=== PATIENT | male | born 1970 | race Caucasian/White ===

== ENCOUNTER 2024-12-05 13:04 | Emergency (ER) | payer BC, SELFPAY ==
[2024-12-05 13:07] VITALS: BP 144/96
[2024-12-05 14:10] VITALS: BP 110/85
[2024-12-05] MEDS: NSS 1000 IV (14:14)
[2024-12-05] MEDS: TORADOL 15 MG IV (14:14)
[2024-12-05] MEDS: PEPCID 20 MG IV (14:15)
[2024-12-05 14:35] LABS: % Basophils 0.7 % (0-2); % Eosinophils 2.8 % (0-6); % Immature Granulocytes 0.3 % (0-0.5); % Lymphocytes 24.8 % (20.5-51.1); % Neutrophils 61.4 % (42.2-75.2); Absolute Basophils 0.1 10^3/uL (0-0.2); Absolute Eosinophils 0.2 10^3/uL (0-0.7); Absolute Lymphocytes 1.9 10^3/uL (1.2-3.4); Absolute Monocytes 0.8 10^3/uL (0.1-0.6); Absolute Neutrophils 4.6 10^3/uL (1.4-6.5); Hematocrit 39.4 % (39.0-52.0); Hemoglobin 13.3 g/dL (13.0-18.0); Mean Corp Hgb Conc. 33.8 g/dL (33.0-37.0); Mean Corpuscular Hgb 30.6 pg (27.0-31.0); Mean Corpuscular Volume 90.8 fL (80.0-94.0); Mean Platelet Volume 10.1 fL (7.4-10.4); Nucleated Red Blood Cells % 0 % (-); Platelet Count 455 10^3/uL (130-400); Red Blood Cell Count 4.34 10^6/uL (4.70-6.10); Red Cell Dist. Width 13.2 % (11.5-14.5); White Blood Cell Count 7.5 10^3/uL (4.8-10.8)
[2024-12-05 14:48] LABS: ALT (SGPT) 33 U/L (0-50); AST (SGOT) 20 U/L (17-59); Albumin 3.9 g/dl (3.5-5.0); Alkaline Phosphatase 58 U/L (38-126); Blood Urea Nitrogen 11 mg/dl (9-20); Calcium 9.5 mg/dl (8.4-10.2); Carbon Dioxide 26 mmol/L (22-30); Chloride 104 mmol/L (98-107); Glucose 86 mg/dl (70-99); Lipase 38 U/L (23-300); Potassium 3.9 mmol/L (3.5-5.1); Sodium 137 mmol/L (135-145); Total Bilirubin 1.3 mg/dl (0.2-1.3); Total Protein 6.1 g/dl (6.3-8.2); Urine Albumin Negative (Neg - Trace); Urine Bilirubin Negative (Negative); Urine Character Slightly Cloudy (Clear); Urine Color Yellow; Urine Glucose Negative (Negative); Urine Ketone Negative (Negative); Urine Leukocyte Negative (Negative); Urine Nitrite Negative (Negative); Urine Occult Blood 1+ (Negative); Urine Urobilinogen Negative (Neg - 1+); eGFR > 60.00
--- NOTE | 2024-12-05 14:55 | ED.GENMED ---
History of Present Illness
General
Chief Complaint: Abdominal Symptoms
Source: patient
Exam Limitations: none
Time Seen by Provider: 12/05/24 13:28
Nursing documentation reviewed up to this point in time: agreed with
History of Present Illness
History of Present Illness:
Patient is a 54-year-old male with history of hypothyroid presenting to the emergency department for evaluation of abdominal symptoms. Patient states that 2 nights ago he woke up at 11 PM and had 4 hours of forceful vomiting and abdominal cramps.
He then had a few episodes of diarrhea. Patient states yesterday and today he has had very little appetite although no repeat episodes of vomiting. He originally thought this may be food poisoning although his and daughter had the same food
as him and did not get sick.
Of note�patient also reports about 6-week of intermittent fevers. Typically these have occurred in the afternoon hours with temps as high as 101F. He also reports feeling extremely fatigued with intermittent constipation over the past 6 weeks. He
has been seen by his primary care regarding this and was placed on a course of doxycycline although intermittent fevers persisted. Patient was also tested for Lyme disease which was negative. Patient has been taking semaglutide at a very low dose
for the past 7 months.
Patient denies any associated cough, chest pain, shortness of breath.
No known bug bites or rashes. No known sick contacts.
Past History
Past History
ED Past Medical History: None
ED Past Surgical History: None
Social History
Alcohol: Occasional
Drug: None
Living: with family
Review of Systems
Review of Systems
Allergies reviewed?: Yes
All Other Systems: ROS reviewed and negative except as documented in HPI and ROS
Phy Exam
Physical Exam
Physical Exam:
Vitals: Patient's vital signs are stable. Afebrile
General: Patient is well appearing, no acute distress. Nontoxic appearing
Skin: Warm and dry, no rashes or lesions
Head: Normocephalic, atraumatic
Eyes: Sclera nonicteric. EOMs intact. No nystagmus.
Throat: Protecting airway
Neck: Normal ROM, no cervical spine tenderness, no meningismus
Cardiac: Regular rate and rhythm, no murmurs.
Pulm: Normal respiratory effort, no wheezes, rales, rhonchi heard on exam.
Abdomen: Abdomen soft. Mild abdominal tenderness in both left lower quadrant and right lower quadrant. No rebound tenderness or guarding. No CVA tenderness
Extremities: No evidence of cyanosis or edema. Palpable DP pulses
Neuro: AAOx3. Grossly intact
Psychiatric: Normal affect.
Course
Orders/Labs/Results
Orders:
Orders
12/05/24 13:48
0.9% Sodium Chloride 1000 ml [Nss] 1,000 ml IV BOLUS
Famotidine [Pepcid] 20 mg IV NOW STA
Ketorolac [Toradol] 15 mg IV NOW STA
12/05/24 13:52
CT Abd/pelvis W Iv Cont Urgent
Comment:
Reason For Exam: b/l lower abdominal pain, vomiting
12/05/24 14:11
Complete Blood Count/With Diff Urgent
Comprehensive Metabolic Panel Urgent
Lipase Urgent
Monotest Urgent
Comment: ADD ON
Urinalysis Reflex To Culture Urgent
Date Specimen was Collected: 12/05/24
Time Specimen was Collected: 13:55
Urine Microscopic Reflex Cult Urgent
12/05/24 15:20
Add On- LAB Urgent
Tests Added?: monospot
Abnormal Lab Results
12/05/24
14:11
RBC 4.34 L 10^6/uL
(4.70-6.10)
Plt Count 455 H 10^3/uL
(130-400)
Absolute Monos (auto) 0.8 H 10^3/uL
(0.1-0.6)
Monocytes % 10.0 H %
(1.7-9.3)
Total Protein 6.1 L g/dl
(6.3-8.2)
Ur Occult Blood Reflex 1+ A
(Negative)
Urine Bacteria (Reflex) Few A
(Negative)
12/05/24 14:11
12/05/24 14:11
Vital Signs
Initial and Last Documented VS:
Initial Vital Signs
Temp Pulse Resp BP Pulse Ox
98.5 F 88 18 144/96 100
12/05/24 13:07 12/05/24 13:07 12/05/24 13:07 12/05/24 13:07 12/05/24 13:07
Last Documented Vital Signs
Temp Pulse Resp BP Pulse Ox
97.6 F 86 20 136/81 99
12/05/24 17:02 12/05/24 17:02 12/05/24 17:02 12/05/24 17:02 12/05/24 17:02
MDM/Problems Addressed
Differential Diagnosis Includes:
Not limited to: Viral gastroenteritis, appendicitis, acute cholecystitis, diverticulitis, viral illness, cystitis, etc
MDM/Problems Addressed:
54 year old male presenting with a few days of persistent anorexia, nausea, and abdominal cramps following acute episode of vomiting and diarrhea which has since resolved. Also concerned regarding intermittent low grade fevers over past 6 weeks and
fatigue. Negative workup with PCP regarding fevers including negative lyme testing. Patient afebrile on arrival with stable vital signs. Physical exam as above. Overall impression is likely viral gastroenteritis. Although given persistent anorexia
and diffuse abdominal tenderness on exam - will obtain CT imaging. Screening labs and UA also sent. Will give IVF, toradol and PPI.
Update: Labs reviewed. No clinicaly significant abnormalities on CBC or CMP. Lipase normal. Urine not infected. CT report reviewed with attending without findings of acute infectious process. Ultimately - viral gastroenteritis most likely etiollgy
of recent GI symptoms. Regarding intermittent fevers - did send monotest which was negative. Patient afebrile here and nontoxic appearing. Possibly underlying viral illness. Do not suspect acute infectious porcess given patient afebrile here with no
leukocytosis and negative abdominal imaging. Patient has remained hemodynamically stable in ED and appears very well and comfortable. Feel stable for discharge home with PCP f/u for furhter management of intermittent fevers. Close return precautions
discussed. Patient and patients comfortable wiht plan.
Chronic conditions affecting care:
N/A
Acute Exacerbation and/or Progression of Chronic Illness:
N/A
*Radiology
Radiology exam reviewed: radiology read reviewed
*Pulse Oximetry
Patient hypoxic: no
*EKG
Interpreted by ED Provider?: NA
*[employer] Interpretation
Rate: [employer]- N/A
*Critical Care Note
Total Time (30-74mins, 75-104mins- exclusive of procedures): Not Applicable
ED Attending Note
-
Portions of this chart may have been created with voice recognition software.� Occasional wrong word or��sound alike� substitutions may have occurred due to the inherent limitations of voice recognition software.
Discharge Plan
Departure
Patient Disposition: Home (Routine Discharge)
Date of Disposition: 12/05/24
Time of Disposition: 16:57
Patient with high blood pressure during this ER visit?: Yes
Condition: Good
Covid-19: Not Applicable
Discharge Problem:
Abdominal pain, Nausea & vomiting
Instructions: Constipation, Adult (DC), Abdominal Pain, BLOOD PRESSURE
Prescriptions:
No Action
levothyroxine 75 mcg Tablet
75 mcg PO DAILY
lithium carbonate 300 mg Capsule
300 mg PO DAILY
albuterol sulfate 90 mcg/actuation Hfa Aerosol Inhaler
2 puff INHALATION Q6HPRN PRN (Reason: sob/wheezing)
acetaminophen 500 mg Capsule
1,000 mg PO Q6HPRN PRN (Reason: mild pain)
bupropion HCl 300 mg Tablet Extended Release 24 Hr
300 mg PO DAILY
psyllium husk [Metamucil] 0.4 gram Capsule
2 g PO MEALS
Semaglutide
5 mg SC FR
Patient Comments:
12/05/24: Patient gets this specially compounded, but is thinking of possibly stopping soon, unsure if he should take next dose
Referrals:
Moy Redd MD [Family Provider] - Follow up in 5-7 days
Activity Restrictions/Additional Instructions:
Return to the emergency department with any fevers, chills, intractable nausea/vomiting, severe abdominal pain, signs of severe dehydration, worsening in current symptoms, or any other concerns
-As discussed�your lab work did show some degree of constipation today. You should try MiraLAX daily. Stay well-hydrated eat a high-fiber diet.
-You can take Tylenol and/or Motrin as needed to for discomfort.
-Follow-up with primary care for further evaluation/management and to ensure symptoms are improving
Monitor your symptoms closely and return to the emergency department with any acute worsening/new symptoms or any other concerns
Interventions
Interventions:
*Risk Screen - Suicide Last Done: 12/05/24 13:07
*General Assessment Last Done: 12/05/24 13:07
*Neglect/Abuse Screening Last Done: 12/05/24 13:07
*ED- Fall Risk Assessment Last Done: 12/05/24 14:10
*ED COVID-19 Vaccine History Last Done: 12/05/24 14:10
*Nursing Disposition Last Done: 12/05/24 17:02
GC-Mxedvf-Kxtydzshwo Assessment Last Done: 12/05/24 14:10
Discharge Date and Time
Discharge Date/Time: 12/05/24 17:15
Print Language: CANADIAN
[2024-12-05 14:56] LABS: Urine Bacteria Few (Negative); Urine Red Blood Cell 0-2 /HPF (0-2); Urine Squamous Cell 0-2 /LPF (Few); Urine White Cell 0-2 /HPF (0-5)
[2024-12-05 15:55] LABS: Monotest Negative (Negative)
[2024-12-05 17:02] VITALS: BP 136/81
== END 2024-12-05 17:15 | disposition home or self-care (01) ==
LOC: EMR 13:04
PROVIDERS: Physician Assistant; EMERGENCY PHYSICIAN Emergency Medicine; FAMILY PHYSICIAN Family Medicine
DX: R11.10 Vomiting, unspecified (principal); R19.7 Diarrhea, unspecified; R10.9 Unspecified abdominal pain; E03.9 Hypothyroidism, unspecified
CPT/HCPCS: 99284; 96374; 96375; 96361; 74177; 80053; 81003; 81015; 83690; 85025; 86308; Q9967

== ENCOUNTER → 2025-01-17 11:17 | Outpatient (REF) | payer BC, SELFPAY | LOC: RAD 11:17 | DX: M89.9 Disorder of bone, unspecified (principal) | CPT/HCPCS: 71101 ==

== ENCOUNTER → 2025-02-11 09:42 | Outpatient (REF) | payer BC, SELFPAY ==
[2025-02-13 00:06] LABS: PSA Total 0.4 ng/mL (0.0-4.0)
== END ==
LOC: REG 09:42
PROVIDERS: ATTENDING PHYSICIAN Surgery
DX: R22.31 Localized swelling, mass and lump, right upper limb (principal); R35.0 Frequency of micturition
CPT/HCPCS: 36415; 73060; 84153; 84154

== ENCOUNTER 2025-06-01 13:36 | Emergency (ER) | payer BC, SELFPAY ==
[2025-06-01 13:39] VITALS: BP 118/71
[2025-06-01 14:06] LABS: Hematocrit 38.4 % (39.0-52.0); Hemoglobin 13.0 g/dL (13.0-18.0); Mean Corp Hgb Conc. 33.9 g/dL (33.0-37.0); Mean Corpuscular Volume 88.9 fL (80.0-94.0); Nucleated Red Blood Cells % 0 % (-); Platelet Count 380 10^3/uL (130-400); Red Cell Dist. Width 13.2 % (11.5-14.5)
[2025-06-01 14:12] LABS: INR 1.05; PT 14.0 Sec (11.4-14.6)
[2025-06-01 14:23] LABS: ALT (SGPT) 18 U/L (0-50); AST (SGOT) 19 U/L (17-59); Albumin 4.3 g/dl (3.5-5.0); Alkaline Phosphatase 53 U/L (38-126); Blood Urea Nitrogen 18 mg/dl (9-20); Calcium 9.7 mg/dl (8.4-10.2); Carbon Dioxide 26 mmol/L (22-30); Chloride 106 mmol/L (98-107); Glucose 61 mg/dl (70-99); Potassium 4.1 mmol/L (3.5-5.1); Sodium 140 mmol/L (135-145); Total Protein 6.7 g/dl (6.3-8.2); eGFR > 60.00
--- NOTE | 2025-06-01 16:19 | ED.GENMED ---
History of Present Illness
General
Chief Complaint: Musculo-Skeletal Complaint
Time Seen by Provider: 06/01/25 16:05
History of Present Illness
History of Present Illness:
54-year-old male with history of hypothyroidism presents to the emergency department for an episode of paresthesias to the right arm associated with pallor to the right second digit. The episodes was seemingly unprovoked with no exertional
traumatic provoking event, he continues to have tingling sensation to the right forearm and hand. Denies chest pain or dyspnea. No fever, chills, sweats. Denies frequent overhead exertional activities. Non-smoker
Past History
Past History
ED Past Medical History: None
ED Past Surgical History: None
Social History
Alcohol: Occasional
Drug: None
Living: with family
Review of Systems
Review of Systems
Allergies reviewed?: Yes
All Other Systems: ROS reviewed and negative except as documented in HPI and ROS
Phy Exam
Physical Exam
Physical Exam:
GEN: Well appearing, NAD, WDWN
HEENT: Oral mucosa moist, no scleral icterus
Cardiac: Regular rate
Lung: No respiratory distress, no tachypnea
MSK: No gross deformity or injuries. No gross tenderness to palpation of the right upper extremity, right radial pulses 2+ and digits sensation and color is normal. Normal strength of the right hand and right wrist
Skin: Good color, no pallor or jaundice, no rashes
Neuro: AO x3, moves all extremities freely
Psych: Calm, cooperative
Course
Orders/Labs/Results
Orders:
Orders
06/01/25 13:53
PT/INR [Prothrombin Time] Urgent
06/01/25 13:54
Complete Blood Count/With Diff Urgent
Comprehensive Metabolic Panel Urgent
06/01/25 16:18
CT Chest Angio W/wo Iv Contras Urgent
Comment:
Reason For Exam: intermittent RUE pallor/paresthesia
Abnormal Lab Results
06/01/25
13:54
RBC 4.32 L 10^6/uL
(4.70-6.10)
Hct 38.4 L %
(39.0-52.0)
Absolute Monos (auto) 0.7 H 10^3/uL
(0.1-0.6)
Glucose 61 L mg/dl
(70-99)
06/01/25 13:54
06/01/25 13:54
Vital Signs
Initial and Last Documented VS:
Initial Vital Signs
Temp Pulse BP Pulse Ox
97.7 F 76 118/71 99
06/01/25 13:39 06/01/25 13:39 06/01/25 13:39 06/01/25 13:39
Last Documented Vital Signs
Temp Pulse Resp BP Pulse Ox
97.7 F 74 16 98/59 97
06/01/25 13:39 06/01/25 16:44 06/01/25 16:44 06/01/25 16:44 06/01/25 16:44
MDM/Problems Addressed
MDM/Problems Addressed:
On exam the patient has no active signs of neurovascular compromise and I was able to obtain Doppler pulses in the right middle finger. A CT angiogram of the chest was obtained to evaluate for proximal vascular pathology this was reassuring,
encouraged outpatient primary care follow-up. Do not suspect CVA TIA given the pallor of the digit associated with the paresthesias, rather this may have been vasospasm, he has no risk factor for thromboembolic disease
*Pulse Oximetry
SaO2: 99
Oxygen Mode of Delivery: Room air
Patient hypoxic: no
*Critical Care Note
Total Time (30-74mins, 75-104mins- exclusive of procedures): Not Applicable
ED Attending Note
-
Portions of this chart may have been created with voice recognition software.� Occasional wrong word or��sound alike� substitutions may have occurred due to the inherent limitations of voice recognition software.
Discharge Plan
Departure
Patient Disposition: Home (Routine Discharge)
Date of Disposition: 06/01/25
Time of Disposition: 19:08
Patient with high blood pressure during this ER visit?: No
Discharge Problem:
Paresthesia of right upper limb
Instructions: Hand Numbness
Prescriptions:
No Action
levothyroxine 75 mcg Tablet
75 mcg PO DAILY
lithium carbonate 300 mg Capsule
300 mg PO DAILY
albuterol sulfate 90 mcg/actuation Hfa Aerosol Inhaler
2 puff INHALATION Q6HPRN PRN (Reason: sob/wheezing)
acetaminophen 500 mg Capsule
1,000 mg PO Q6HPRN PRN (Reason: mild pain)
bupropion HCl 300 mg Tablet Extended Release 24 Hr
300 mg PO DAILY
psyllium husk [Metamucil] 0.4 gram Capsule
2 g PO MEALS
Semaglutide
5 mg SC FR
Patient Comments:
12/05/24: Patient gets this specially compounded, but is thinking of possibly stopping soon, unsure if he should take next dose
Referrals:
Moy Redd MD [Family Provider, Family Practice]
Activity Restrictions/Additional Instructions:
Your CT scan shows no vascular abnormalities
Follow up with your primary care physician
Interventions
Interventions:
*Risk Screen - Suicide Last Done: 06/01/25 13:46
*General Assessment Last Done: 06/01/25 13:46
*Neglect/Abuse Screening Last Done: 06/01/25 13:46
*ED COVID-19 Vaccine History Last Done: 06/01/25 13:46
ED-Musculoskeletal Assessment Last Done: 06/01/25 16:49
Discharge Date and Time
Print Language: PERSIAN
[2025-06-01 16:43] VITALS: BMI 21.3
[2025-06-01 16:44] VITALS: BP 98/59
== END 2025-06-01 19:30 | disposition home or self-care (01) ==
LOC: EMR 13:36
PROVIDERS: Emergency Medicine; EMERGENCY PHYSICIAN Emergency Medicine; FAMILY PHYSICIAN Family Medicine
DX: R20.2 Paresthesia of skin (principal); R23.1 Pallor
CPT/HCPCS: 99284; 71275; 80053; 85025; 85610; Q9967